=== PATIENT | female | born 1960 | race Two or more races ===

== ENCOUNTER → 2020-11-05 | Outpatient (CLI) | payer BC ==
--- NOTE | 2020-11-05 20:36 | CONS ---
CONSULTATION REASON FOR CONSULTATION: Sleep apnea. Clarissa is 60. She has been feeling more tired and sleepy and she is very concerned about sleep apnea. 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 She has gained over the years. She has snoring. She has never been told that she quits breathing, although this is a concern. She is a bit concerned about sleep apnea, and for that reason she came in to see me in consultation. No episodes of falling asleep while driving her car. Nevertheless, she gets tired and sleepy in the afternoon and she has to take a nap. Typically that nap lasts around 30 minutes. The patient goes to bed around 11 p.m. and she gets out of bed at 5:30 to 7 a.m. in the morning. She keeps the same schedule over the weekends. No other major medical problems or comorbidities at this point in time. No sinus allergies. No nasal plugging. No history of any substance abuse or alcoholism. No history of head trauma. Denies waking up in the middle of the night choking or gasping for air. No nocturia. No grinding of the teeth and no anxiety or panic attacks. No depression. No nocturnal heartburn, shortness of breath or chest pain. PAST MEDICAL HISTORY: Negative. PAST SURGICAL HISTORY: Back surgery in 2009. DRUG ALLERGIES: SULFA. MEDICATIONS: None. SOCIAL HISTORY: Nonsmoker. No history of alcoholism. No history of IV drugs. FAMILY HISTORY: Negative for sleep apnea. REVIEW OF SYSTEMS: Fourteen-point review of systems was done. Positive findings are all mentioned above in the history of present illness. PHYSICAL EXAMINATION: VITAL SIGNS: BP is 104/70, pulse 75, respirations 16, temperature 98.4, saturation 99% on room air. Height is 5 feet 6 inches. Weight is 175 and BMI is 28.2. Placida score is 7. Neck size 16-1/2 inches. GENERAL APPEARANCE: Calm, comfortable. HEAD: Atraumatic, normocephalic. NECK: Supple. No JVD. No goiter or neck masses. Mallampati class IV. LUNGS: Clear to auscultation. HEART: Heart sounds are regular rate and rhythm. Normal S1, S2. No S3, S4. No murmurs. ABDOMEN: Soft, nontender. No organomegaly. EXTREMITIES: No edema. No cyanosis or clubbing. IMPRESSION: 1. Chronic fatigue/sleepiness. Placida score of 7. 2. Snoring. 3. Mallampati class IV with an overbite. 4. Recent weight gain. Current BMI is 28.2. PLAN: Proceed with home sleep study testing to screen this patient for obstructive sleep apnea and decide if treatment is needed. Meanwhile, strongly encourage losing weight and maintaining sleep schedule and optimizing sleep hygiene measures. These were all discussed with the patient in the office. Will continue to follow and make further recommendations based on the results of the home sleep study. MMODL / IJN: [id number] /
== END ==
LOC: SLEEP 14:47
PROVIDERS: ATTEND Nurse Practitioner Family
DX: G47.30 Sleep apnea, unspecified (principal); R06.83 Snoring; R63.5 Abnormal weight gain; Z68.28 Body mass index [BMI] 28.0-28.9, adult
CPT/HCPCS: 99201

== ENCOUNTER → 2021-10-14 | Outpatient (CLI) | payer OTHER ==
--- NOTE | 2021-10-14 11:15 | BD ---
EXAMINATION TYPE: Axial Bone Density DATE OF EXAM: 10/14/2021 COMPARISON: NONE CLINICAL HISTORY: Postmenopausal female Height: 5 FT 5 IN Weight: 171 FRAX RISK QUESTIONS: Alcohol (3 or more units per day): NO Family History (Parent hip fracture): NO Glucocorticoids (More than 3mos): NO (Ex: prednisone, prednisolone, methylprednisolone, dexamethasone, and hydrocortisone). History of Fracture in Adulthood: NO Secondary Osteoporosis: 1. Type 1 Diabetes: NO 2. Hyperthyroidism: NO 3. Menopause before 45: NO 4. Malnutrition: NO 5. Chronic liver disease: NO Rheumatoid Arthritis: NO Current Tobacco Use: NO RISK FACTORS HISTORY OF: Surgery to Spine/Hip(right/left)/Wrist (right/left): LUMBAR SURG When: 2009 Family History of Osteoporosis: NO Active: YES Diet low in dairy products/other sources of calcium: NO Postmenopausal woman: YES Take estrogen and/or progesterone medications: NO Lost more than 2 inches in height since high school: NO Frequent falls: NO Poor Health: GOOD Hyperparathyroidism: NO Adrenal Insufficiency: NO MEDICATIONS: Additional Medications: NONE Additional History: EXAM MEASUREMENTS: Bone mineral density about the R hip (g/cm2): 0.787 Bone mineral density about the L hip (g/cm2): 0.739 T Score values are as follows: -----R Neck: -1.8 -----L Neck: -2.2 -----R Total: -1.3 -----L Total: -1.3 BASELINE Bone mineral density about the L Wrist (g/cm2): 0.566 T Score values are as follows: -----Dist. R+U: -2.8 -----Prox. R+U: -1.0 -----Radius total: -1.8 BASELINE IMPRESSION: Osteopenia (T Score between -2.5 and -1). There is slightly increased risk of fracture and the patient may be considered for treatment. Re-Screen 2-5 years. NOTE: T-SCORE=SD OF THE YOUNG ADULT MEAN.
== END | disposition home or self-care (01) ==
LOC: RADBDWWP 08:08
PROVIDERS: ATTEND Family Medicine
DX: M81.0 Age-related osteoporosis without current pathological fracture (principal); M85.89 Other specified disorders of bone density and structure, multiple sites; Z78.0 Asymptomatic menopausal state
CPT/HCPCS: 77080

== ENCOUNTER → 2023-11-11 | Outpatient (CLI) | payer OTHER ==
--- NOTE | 2023-11-15 12:01 | MM ---
Reason for Exam: Screening (asymptomatic). Last mammogram was performed 1 year(s) and 11 month(s) ago. Patient History: Menarche at age 11. First Full-Term at age 31. Hysterectomy at age 50. Risk Values: Albina 5 year model risk: 1.8%. NCI Lifetime model risk: 8.6%. Prior Study Comparison: 09/30/2018 Right MG 3D [facility] w[facility] . 07/04/2020 Bilateral MG 3D screening mammo w/cad, [facility] [place] . 12/24/2021 Bilateral MG 3D screening mammo w/cad, [facility]. Tissue Density: There are scattered areas of fibroglandular density. Findings: Analyzed By CAD. There is no suspicious group of microcalcifications or new suspicious mass. Overall Assessment: Negative, BI-RAD 1 Management: Screening Mammogram of both breasts in [address] [facility] will attempt to contact patient to return for supplemental views and ultrasound if indicated. Patient should continue monthly self-breast exams. A clinical breast exam by your physician is recommended on an annual basis. This exam should not preclude additional follow-up of suspicious palpable abnormalities. Note on Albina scores and lifetime risk: 1. A Albina score greater than 3% is considered moderate risk. If this is the case, consider specialist referral to assess eligibility for a risk reducing agent. 2. If overall lifetime risk for the development of breast cancer is 20% or higher, the patient may qualify for future screening with alternating mammogram and breast MRI. Electronically signed and approved by: Mike Bermeo DO
== END | disposition home or self-care (01) ==
LOC: RADMAMWWP 14:26
PROVIDERS: ATTEND Family Medicine
DX: Z12.31 Encounter for screening mammogram for malignant neoplasm of breast (principal)
CPT/HCPCS: 77067

== ENCOUNTER → 2024-11-13 | Outpatient (CLI) | payer OTHER ==
--- NOTE | 2024-11-13 10:37 | MM ---
Reason for Exam: Screening (asymptomatic). Last screening mammogram was performed 12 month(s) ago. Patient History: Menarche at age 11. First Full-Term at age 31. Hysterectomy at age 50. Currently using Estrogen. Currently using Progesterone. Risk Values: Albina 5 year model risk: 1.9%. NCI Lifetime model risk: 8.4%. Prior Study Comparison: 07/04/2020 Bilateral MG 3D screening mammo w/cad, [facility] . 12/24/2021 Bilateral MG 3D screening mammo w/cad, [facility]. 11/11/2023 Bilateral MG screening mammo w CAD, [facility]. Tissue Density: The breasts are heterogeneously dense, which may obscure small masses. Findings: Analyzed By CAD. A few tiny benign-appearing round punctate calcifications throughout the bilateral breasts are redemonstrated. Stable asymmetric prominent tissue medially in the right breast. There is no suspicious new group of microcalcifications or new suspicious mass in either breast. Overall Assessment: Benign, BI-RAD 2 Management: Screening Mammogram of both breasts in 1 year. Some advise bilateral breast ultrasound surveillance in patients with background dense tissue. Patient should continue monthly self-breast exams. A clinical breast exam by your physician is recommended on an annual basis. This exam should not preclude additional follow-up of suspicious palpable abnormalities. Note on Albina scores and lifetime risk: 1. A Albina score greater than 3% is considered moderate risk. If this is the case, consider specialist referral to assess eligibility for a risk reducing agent. 2. If overall lifetime risk for the development of breast cancer is 20% or higher, the patient may qualify for future screening with alternating mammogram and breast MRI. [facility], , 11/13/2024 10:34 AM. Electronically signed and approved by: Matt Desouza M.D.
--- NOTE | 2024-11-13 11:19 | BD ---
EXAMINATION TYPE: Axial Bone Density DATE OF EXAM: 11/13/2024 CLINICAL HISTORY: 64 years old Female. ICD-10 CODE: Z78.0 ASYMPTOMATIC MENOPAUSAL STA , Additional History: Height: 65 Weight: 159 FRAX RISK QUESTIONS: Family History (Parent hip fracture): yes History of Fracture in Adulthood: no Secondary Osteoporosis: no RISK FACTORS HISTORY OF: Surgery to Spine: yes When: 2009 MEDICATIONS: Thyroid Medications: no Osteoporosis Medications: no EXAM MEASUREMENTS: Bone mineral densitometry was performed using the [employer] [facility]. Bone mineral density as measured about the Lumbar spine is: ----- L1-L4(G/cm2): 1.212 T Score Values are as follows: ----- L1: -0.5 ----- L2: -0.7 ----- L3: 1.4 ----- L4: 0.8 ----- L1-L4: 0.3 Z Score Values are as follows: ----- L1: 0.6 ----- L2: 0.4 ----- L3: 2.5 ----- L4: 1.9 ----- L1-L4: 1.4 Bone mineral density baseline Bone mineral density about the R hip (g/cm2): 0.851 Bone mineral density about the L hip (g/cm2): 0.886 T Score values are as follows: -----R Neck: -2.1 -----L Neck: -2.1 -----R Total: -1.2 -----L Total: -1.0 Z Score values are as follows: -----R Neck: -0.9 -----L Neck: -0.9 -----R Total: -0.4 -----L Total: -0.1 Bone mineral density has: Increased 2.4% since study of: 10/14/2021 FRAX%s: The graph provided illustrates a 10.6% chance for a major osteoporotic fx and a 1.6% chance f or the hips probability for fx in 10 years time. IMPRESSION: Osteopenia (T Score between -2.5 and -1) remains present. There is slightly increased risk of fracture and the patient may be considered for treatment. Re-Screen 2-5 years. NOTE: T-SCORE=SD OF THE YOUNG ADULT MEAN. [facility], , 11/13/2024 11:17 AM
== END | disposition home or self-care (01) ==
LOC: RADMAMWWP 10:12
PROVIDERS: ATTEND Family Medicine
DX: Z12.31 Encounter for screening mammogram for malignant neoplasm of breast (principal); M85.89 Other specified disorders of bone density and structure, multiple sites; R92.1 Mammographic calcification found on diagnostic imaging of breast; R92.333 Mammographic heterogeneous density, bilateral breasts; Z78.0 Asymptomatic menopausal state
CPT/HCPCS: 77063; 77067; 77080